=== PATIENT | male | born 1965 | race Caucasian/White ===

== ENCOUNTER 2025-01-04 20:35 | Emergency (ER) | payer OTHER, SELFPAY ==
--- NOTE | ~2025-01-04 | XR_ITS ---
CLINICAL HISTORY: injury 3 view left shoulder Comparison: None Findings: There is anterior inferior dislocation with comminuted fracture involving the greater tubercle. Impression: Anterior inferior left glenohumeral dislocation with comminuted fracture involving the greater tuberosity This document has been electronically signed by: Bernard Gallegos MD on 01/04/2025 21:29:06
--- NOTE | ~2025-01-04 | XR_ITS ---
CLINICAL HISTORY: reduction 2 view left shoulder Comparison: CR - XR SHOULDER LT MIN 2V - 01/04/25 21:17 EST Findings: Redemonstrated comminuted fractures along the greater tuberosity of the proximal humerus. Degenerative changes of the AC and glenohumeral joints. Interval relocation of the glenohumeral joint. No erosions. No radiopaque foreign body. Lateral soft tissue swelling. IMPRESSION: 1. Interval relocation of the glenohumeral joint. 2. Redemonstrated proximal humeral fracture. This document has been electronically signed by: Devyn Gardner MD on 01/04/2025 23:50:00
[2025-01-04 21:04] VITALS: BP 162/99; PULSE 105; RESP 18; TEMP 37.2; O2SAT 93; BMI 30.4
[2025-01-04 21:52] VITALS: PULSE 101; RESP 18; TEMP 36.6; O2SAT 98
[2025-01-04] MEDS: Morphine Sulfate 4 MG/ML CARTRIDGE IM (22:18)
[2025-01-04] MEDS: Ondansetron ODT 4 MG TAB.RAPDIS TRANSLINGU (22:18)
--- NOTE | 2025-01-04 22:32 | ED_ITS ---
HPI - General Adult General Chief complaint: Fall Stated complaint: left shoulder inj Time Seen by Provider: 01/04/25 21:55 Source: patient, RN notes reviewed and old records reviewed Mode of arrival: ambulatory Limitations: no limitations History of Present Illness ED Provider: Sanju FLOWERS narrative: 59-year-old male who denies any past medical history presents for evaluation of left shoulder pain. Patient reports he was skiing about an hour and a half prior to arrival. He fell onto his left side injuring his left shoulder. He is unable to move his left upper arm at the shoulder. He denies any head strike, neck pain, chest pain No other complaints or concerns at this time Related Data Previous Rx's ?Medication ?Instructions ?Recorded cyclobenzaprine 10 mg tablet 10 mg PO TID PRN muscle spasm #20 01/04/25 tabs oxycodone 5 mg tablet 5 mg PO Q6H PRN severe pain (scale 01/04/25 score 7-10) #20 tabs Allergies Allergy/AdvReac Type Severity Reaction Status Date / Time No Known Allergies Allergy Verified 01/04/25 21:07 Review of Systems Constitutional: Constitutional: Denies body ache(s), Denies chills and Denies headache(s) Eyes: Eyes: Denies blurry vision ENT: Denies headache(s) and Denies neck pain Cardiovascular: Cardiovascular: Denies chest pain and Denies dyspnea Respiratory: Respiratory: Denies dyspnea Musculoskeletal: Musculoskeletal: Reports arthralgias, Reports joint swelling, Reports limited range of motion and Denies neck pain Integumentary/Breasts: Skin/Breast: Denies wounds Neurologic: Denies headache(s) PMFSH Social History Social History Smoked in Last 30 Days: No Advance Directives: No Advance Directives Information Provided: No Do you have a plan to hurt others: No Plan Physical Exam ED Vital Signs: Vital Signs - 24 hr 01/04/25 21:04 01/04/25 21:52 Temperature 99 F 98 F Pulse Rate 105 H 101 H Respiratory Rate 18 18 Blood Pressure 162/99 H Pulse Oximetry 93 98 Oxygen Delivery Method Room Air Room Air BMI result Body Mass Index 30.4 Const General: healthy appearing, comfortable, no acute distress, alert and awake Nutritional Appearance: well nourished Orientation/consciousness: patient oriented x3 HENMT Head: Yes normocephalic and Yes atraumatic Eyes Eyelids: Yes eyelids normal Conjunctivae: conjunctivae normal Sclerae: sclerae normal Corneas: corneas normal Pupils: Equal, round and reactive pupils present EOM: EOMs intact bilaterally Neck Other: No C-spine tenderness Neck: Yes full ROM Resp Effort & Inspection: normal respiratory effort, able to speak in complete sentences and not labored Skin General skin exam: elasticity normal Neuro General: patient oriented x3 Cranial nerves: Yes Equal, round and reactive pupils present and Yes Bilaterally intact EOM present Cognition (Neuro): normal cognition Extrem Other: No tenderness to the left elbow or wrist. No significant edema to this area. Patient is able to move all 5 fingers of the left hand. Radial pulse 2 +in the left. The patient has significant tenderness to palpation of the left shoulder. Reduced range of motion to this joint. Course Reevaluation(s) Reevaluation #1: Postreduction x-ray confirms successful reduction of the humeral head and improvement of the greater tuberosity fracture. Time: 23:49 Medications Administered Discontinued Medications Generic Name Dose Route Start Last Admin Trade Name Hamzahq PRN Reason Stop Dose Admin Morphine Sulfate 4 mg 01/04/25 22:04 01/04/25 22:18 Morphine Sulfate 4 Mg/Ml Cartridge IM 01/04/25 22:05 4 mg ONCE ONE Administration Protocol Ondansetron HCl 4 mg 01/04/25 22:04 01/04/25 22:18 Ondansetron Odt 4 Mg Tab.Rapdis TRANSLINGU 01/04/25 22:05 4 mg ONCE ONE Administration Procedures Orthopedic Joint Reduction Joint #1: Time Out Performed: Yes Side: left Joint Reduction Location: shoulder Analgesia: none Shoulder Technique Used (if applicable): external rotation Post-reduction neuro exam: intact Post-reduction vascular: intact Post Reduction X-Ray Obtained: Yes Post Reduction X-Ray Results: reduced Splint Applied: Yes (sling) Patient Tolerated Procedure: well and no complications Medical Decision Making Medical Decision Making MDM Narrative: 59-year-old male presents for evaluation of left shoulder pain after a fall. X- ray shows an anterior inferior left glenohumeral dislocation with a comminuted fracture involving the greater tuberosity Differential Diagnosis Differential Diagnoses: The differential diagnosis associated with the presentation includes Independent Interpretation I performed an independent interpretation of an: Plain X-Ray Interpretation: Agree with Radiology interpretation Radiology Impression Discussion of test interpretation with radiology: I have reviewed the radiologist's reading. Radiologist Impression: Findings: There is anterior inferior dislocation with comminuted fracture involving the greater tubercle. Impression: Anterior inferior left glenohumeral dislocation with comminuted fracture involving the greater tuberosity Discharge Plan Discharge Clinical Impression: Anterior dislocation of left shoulder, Fracture, humerus, greater tuberosity Patient Disposition: Home, Self-Care Instructions: Arm Fracture in Adults (ED), Shoulder Dislocation (ED) Additional Instructions: Your shoulder was both fractured and dislocated. It was reduced in the ER You may use ibuprofen/Tylenol for pain You may use oxycodone for severe breakthrough pain Take cyclobenzaprine as needed for muscle spasms. Oxycodone and cyclobenzaprine will both make you drowsy, do not drink alcohol or drive after taking the It is important that you follow up with Orthopedics Prescriptions: New oxycodone 5 mg tablet 5 mg PO Q6H PRN (Reason: severe pain (scale score 7-10)) Qty: 20 0RF Rx Instructions: Partial Fill upon patient request. cyclobenzaprine 10 mg tablet 10 mg PO TID PRN (Reason: muscle spasm) Qty: 20 0RF Print Language: Belgian
[2025-01-05 00:08] VITALS: BP 144/86; PULSE 86; RESP 18; TEMP 37; O2SAT 98
[2025-01-05] MEDS: oxyCODONE HCl Immed Release 5 MG TABLET PO (00:15)
== END 2025-01-05 00:33 | disposition home or self-care (01) ==
PROVIDERS: Emergency Provider Emergency Medicine; PCP Family Medicine
DX: S43.085A Other dislocation of left shoulder joint, initial encounter (principal); S42.252A Displaced fracture of greater tuberosity of left humerus, initial encounter for closed fracture; V00.321A Fall from snow-skis, initial encounter; M25.512 Pain in left shoulder; Y93.23 Activity, snow (alpine) (downhill) skiing, snowboarding, sledding, tobogganing and snow tubing; Y92.828 Other wilderness area as the place of occurrence of the external cause; Y99.9 Unspecified external cause status
CPT/HCPCS: 23665; 73030; 96372; 99284; J2270

== ENCOUNTER → 2025-01-04 20:57 | Outpatient (BNV) | payer OTHER, SELFPAY | PROVIDERS: PCP Family Medicine; Visit Provider Radiology Vascular & Interventional Radiology | DX: S42.202A Unspecified fracture of upper end of left humerus, initial encounter for closed fracture (principal) | CPT/HCPCS: 73030 ==

== ENCOUNTER 2025-02-06 14:21 | Outpatient (AMB) | payer OTHER, SELFPAY ==
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
[2025-02-06 14:46] VITALS: BP 140/80; PULSE 125; RESP 14; TEMP 37.9; O2SAT 95; BMI 31.0
[2025-02-06 14:52] VITALS: BP 138/78
== END 2025-02-06 15:50 | disposition home or self-care (01) ==
LOC: HO.HMCFM 14:22
PROVIDERS: PCP Family Medicine; Visit Provider Family Medicine
DX: S42.92XA Fracture of left shoulder girdle, part unspecified, initial encounter for closed fracture (principal); E66.9 Obesity, unspecified; R00.0 Tachycardia, unspecified; Z68.31 Body mass index [BMI] 31.0-31.9, adult; I10 Essential (primary) hypertension

== ENCOUNTER → 2025-02-06 14:21 | Outpatient (BNVA) | payer OTHER, SELFPAY | PROVIDERS: PCP Family Medicine; Visit Provider Family Medicine | DX: Z76.89 Persons encountering health services in other specified circumstances (principal); I10 Essential (primary) hypertension; E66.9 Obesity, unspecified; Z68.31 Body mass index [BMI] 31.0-31.9, adult; R00.0 Tachycardia, unspecified; S42.92XD Fracture of left shoulder girdle, part unspecified, subsequent encounter for fracture with routine healing; X58.XXXD Exposure to other specified factors, subsequent encounter | CPT/HCPCS: 96127 ==

== ENCOUNTER 2025-02-14 09:51 | Outpatient (REF) | payer OTHER, SELFPAY ==
[2025-02-14 11:38] LABS: MANUAL DIFF FLAG NO
[2025-02-14 11:40] LABS: Basophils Absolute Auto 0.1 X10*3/uL (0.0-0.2); Basophils Percent Auto 0.9 % (0-2); Eosinophils Absolute Auto 0.1 X10*3/uL (0.0-0.4); Eosinophils Percent Auto 1.5 % (0-4); Hematocrit 39.9 % (42.0-52.0); Hemoglobin 13.4 g/dl (14.0-18.0); Imm Gran Abs Auto 0.02 X10*3/uL (0.00-0.03); Imm Gran Pct Auto 0.3 % (0.0-0.4); Lymphocytes Absolute Auto 2.1 X10*3/uL (1.2-4.9); Mean Corpuscular HGB Conc 33.6 g/dl (31.0-36.0); Mean Corpuscular Hemoglobin 29.7 pg (27.0-33.0); Mean Corpuscular Volume 88.5 fL (80.0-98.0); Mean Platelet Volume 9.7 fL (9.4-12.4); Monocytes Absolute Auto 0.7 X10*3/uL (0.1-1.2); Monocytes Percent Auto 10.3 % (2-11); Neutrophils Absolute Auto 3.6 x10*3/uL (2.0-8.3); Platelet Count 309 X10*3/uL (160-400); Red Blood Count 4.51 X10*6/uL (4.60-5.80); Red Cell Distribution Width 12.4 % (11.0-16.0); White Blood Count 6.5 X10*3/uL (4.8-10.8)
[2025-02-14 12:01] LABS: Estimated Average Glucose 134 mg/dL; Hemoglobin A1C 164.5138 umol/L; Hemoglobin A1c % 6.3 % (<6.0); Total Hemoglobin (HGBA1C) 3606.1451 umol/L
[2025-02-14 12:01] LABS: Appearance Urine Clear; Color Urine Yellow; Glucose Urine UA Negative (Negative); Leukocyte Esterase Urine Negative (Negative); Nitrite Urine Negative (Negative); Specific Gravity - Urine <= 1.005 (1.005-1.025); Urine Blood Negative (Negative); Urine Ketones Negative (Negative); Urine Protein Negative (Neg-Trace)
[2025-02-14 12:12] LABS: Alanine Aminotransferase 51 U/L (0-40); Albumin Level 4.3 g/dL (3.5-5.0); Alkaline Phosphatase 87 U/L (39-117); Anion Gap 9 (12-20); Aspartate Amino Transferase 35 U/L (5-37); Bilirubin Total 0.7 mg/dL (0.0-1.0); Blood Urea Nitrogen 17 mg/dL (9-16); Calcium 9.1 mg/dL (8.4-10.2); Carbon Dioxide 27 mmol/L (22-29); Chloride 104 mmol/L (96-108); Cholesterol 197 mg/dL (<200); Estimated Glomerular Filt Rate > 60; Glucose Fasting 102 mg/dL (60-99); HDL Cholesterol 43 mg/dL (>40); Iron 91 mcg/dL (45-160); LDL Cholesterol Calculated 126 mg/dL (<100); Percent Iron Saturation 32 % (15-50); Sodium 136 mmol/L (135-145); Total Iron Binding Capacity 284 mcg/dL (228-428); Total Protein 7.4 g/dL (6.5-8.0); Triglycerides 142 mg/dL (<150); Unsaturated Iron Binding 193 ug/dL
[2025-02-14 12:25] LABS: Creatinine Urine 14.92 mg/dL; Microalbumin Urine < 5.0 mg/L
[2025-02-14 12:32] LABS: TSH reflex Free T4 1.44 uIU/mL (0.32-4.0); Vitamin D 25-OH Total 56.3 ng/mL (>30)
== END 2025-02-14 09:52 | disposition home or self-care (01) ==
LOC: HO.WFDLDS 09:51
PROVIDERS: Visit Provider Family Medicine
DX: Z00.00 Encounter for general adult medical examination without abnormal findings (principal); R73.01 Impaired fasting glucose; E66.9 Obesity, unspecified; I10 Essential (primary) hypertension; R00.0 Tachycardia, unspecified; E55.9 Vitamin D deficiency, unspecified
CPT/HCPCS: 36415; 80053; 80061; 81003; 82043; 82306; 82570; 83036; 83540; 84443; 85025

== ENCOUNTER 2025-03-03 09:53 | Outpatient (AMB) | payer OTHER, SELFPAY ==
--- NOTE | 2025-03-03 10:05 | MHC.AMNUTRGE ---
VS Expanded 03/03/25 10:06 03/03/25 10:15 Height 5 ft 9 in 5 ft 9 in Weight 204 lb 12.951 oz 205 lb BMI 30.2 30.3 Intake Visit Reasons: Obesity, unspecified Allergies No Known Allergies Allergy (Verified 01/04/25 21:07) Nutrition Presentation Details: Pt presents for MNT for obesity food frequency: fruits: 0-1 fish 1-2 x/wk milk 4x/wk salads 1-2/d beverages: ice tea/milk/water etoh/smoking---- physical activity: lessened d/to injury in shoulder will start therapy on Mon BS Monitoring Most Recent Diabetes Results: Microalb/Creat Ratio TNP 02/14/25 Cholesterol 197 mg/dL (<200) 02/14/25 HDL Cholesterol 43 mg/dL (>40) 02/14/25 Triglycerides 142 mg/dL (<150) 02/14/25 Creatinine 0.82 mg/dL (0.5-1.4) 02/14/25 Blood Urea Nitrogen 17 mg/dL (9-16) H 02/14/25 Sodium 136 mmol/L (135-145) 02/14/25 Potassium 4.0 mmol/L (3.3-5.1) 02/14/25 Chloride 104 mmol/L (96-108) 02/14/25 Carbon Dioxide 27 mmol/L (22-29) 02/14/25 Calcium 9.1 mg/dL (8.4-10.2) 02/14/25 AST 35 U/L (5-37) 02/14/25 ALT 51 U/L (0-40) H 02/14/25 Total Protein 7.4 g/dL (6.5-8.0) 02/14/25 Albumin 4.3 g/dL (3.5-5.0) 02/14/25 QTZ-[id number]-Pu.Jeor Equation Height: 5 ft 9 in Weight: 205 lb Resting Metabolic Rate: 1748.87 Calculated Activity Level: Mild Activity Calories Needed to Maintain Weight: 2404.70 Diagnosis Nutrition problem #1: overweight/obesity As related to (etiology) #1: lack of nutrit education As evidenced by (sign/symptom) #1: knowledge deficit of diet [facility] Medical History (Updated 02/06/25 @ 15:22 by Diogo Cullen) Shoulder fracture, left High blood pressure Family History (Updated 02/06/25 @ 14:46 by Johny Julian [facility]) Mother Diabetes Father Asthma High blood pressure High cholesterol Diabetes Cardiovascular disease Clotting disorder Thyroid disorder Cancer Alcoholism Psychiatric disorder Maternal Grandmother Diabetes Paternal Grandmother High blood pressure High cholesterol Cardiovascular disease Clotting disorder Thyroid disorder Cancer Alcoholism Psychiatric disorder Diabetes Paternal Grandfather Diabetes High blood pressure High cholesterol Cardiovascular disease Clotting disorder Thyroid disorder Cancer Alcoholism Psychiatric disorder Assessment & Plan Assessment & Plan (1) Obesity: Code(s): E66.9 - Obesity, unspecified Category: Medical Plan: Wt: 93Kg ( 02/28 ) Est kcal needs as per MSJ: 2400 (40% carb, 30% protein/fat) Est fluid needs as per 25-30 ml/d: 2800 Est prot per day as per 1 g/kg bw: 90 Recommend fiber intake : 8-10 g per day and gradually increase to 25-28 g per day for women and 35-38 g for men or as tolerated Recommend sodium intake per day : less than 2000 mg Educated patient on: ( R = reviewed V = verbalizes understanding N/R = needs review N/A = not applicable Food sources of carbohydrate, adequate serving sizes and its role in various health conditions: R V N/R Differences between complex carbohydrates a simple carbohydrates, role of fiber in diet: R Lean protein sources of foods: R V NR Differences between types of fats and role in diet (mono on saturated fat fatty acids, saturated fatty acids, trans fats): R basic Food sources of sodium in salt and healthy modifications for heart health in kidney health: R V R/V Vitamins and minerals: R V N/R Healthy plate method concept: R V N/R Physical activity: Benefits a precaution: R Patient Instructions: Work on mindful eating Watch portion of total carb , reduce portion to 80 g carb per meal or less following healthy plate method Choose water, herb/fruit infused water , keeping hydrated Coding Level of Care Code Nutr Indiv Intake (30247) Diagnoses Obesity E66.9 Time Spent (min) 30
[2025-03-03 10:06] VITALS: BMI 30.2
[2025-03-03 14:26] VITALS: BMI 30.3
== END 2025-03-03 10:46 | disposition home or self-care (01) ==
LOC: HO.ENCR 09:54
PROVIDERS: PCP Family Medicine; Visit Provider Dietitian, Registered
DX: E66.9 Obesity, unspecified (principal)

== ENCOUNTER → 2025-03-03 09:53 | Outpatient (BNVA) | payer OTHER, SELFPAY | PROVIDERS: PCP Family Medicine; Visit Provider Dietitian, Registered | DX: E66.9 Obesity, unspecified (principal); Z68.30 Body mass index [BMI] 30.0-30.9, adult; Z71.3 Dietary counseling and surveillance | CPT/HCPCS: 97802 ==

== ENCOUNTER 2025-03-10 15:19 | Outpatient (AMB) | payer OTHER, SELFPAY ==
[2025-03-10 15:45] VITALS: BP 147/90; PULSE 87; RESP 18; TEMP 36.7; O2SAT 97; BMI 30.8
--- NOTE | 2025-03-10 15:45 | A.OFFPC_ITS ---
Vital Signs 03/10/25 15:45 03/10/25 15:46 Height 5 ft 9 in Weight 208 lb 6 oz BMI 30.8 BP 147/90 H 145/87 H Blood Pressure Location Rt brachial Lt brachial Position Sitting Sitting Respiration 18 Pulse 87 Pulse Source Pulse Oximeter Temp 98.0 F Temp Source Oral Pulse Oximetry (%) 97 Oxygen Delivery Method Room Air Intake Visit Reasons: f/u HTN Intake Note: patient scheduled for htn Radio Officer Required: No Allergies No Known Allergies Allergy (Verified 03/10/25 15:47) Medication List - Last Reconciled 03/10/25 by Raymundo Lainez MD losartan 50 mg PO DAILY 90 days HPI f/u HTN HPI Details 59 y/o male presents to f/u HTN, tachyca rdia. Also following up on labs, health maintenance. Labs drawn 02/14/25. Reviewed labs with pt. Mild anemia. A1c 6.3% - pre-diabetes range. Fasting glucose 102. ALT 51. Triglycerides 142. TC 197. LDL 126. HDL 43. Pt notes tachycardia has resolved. He had been in some pain last office visit due to a broken arm. [facility] Medical History (Updated 03/10/25 @ 16:17 by Diogo Cullen) Shoulder fracture, left High blood pressure Family History (Updated 02/06/25 @ 14:46 by Johny Julian [facility]) Mother Diabetes Father Asthma High blood pressure High cholesterol Diabetes Cardiovascular disease Clotting disorder Thyroid disorder Cancer Alcoholism Psychiatric disorder Maternal Grandmother Diabetes Paternal Grandmother High blood pressure High cholesterol Cardiovascular disease Clotting disorder Thyroid disorder Cancer Alcoholism Psychiatric disorder Diabetes Paternal Grandfather Diabetes High blood pressure High cholesterol Cardiovascular disease Clotting disorder Thyroid disorder Cancer Alcoholism Psychiatric disorder Questionnaire Thrive Questionnaire Date Thrive assessed: 02/06/25 I am a: Patient What is your living situation today?: I have a steady place to live Within the past 12 months, did the food you bought not last and you didn't have the money to get more?: Never true Within the past 12 months, did you worry whether your food would run out before you got money to buy more?: Never true Do you have trouble paying for medicines?: No Do you have trouble getting transportation to medical appointments?: No Do you have trouble paying your heating and electricity bill?: No Do you have trouble taking care of your child, family member or friend?: No Do you have trouble with day-to-day activities such as bathing, preparing meals, shopping, managing finances, etc.?: No Are you currently unemployed and looking for a job?: No Are you interested in more education?: No Please select the resources that you would like help with: None Currently or been in a relationship where the following occur: No concerns reported THRIVE Score: 0 KNENETH-7 AMB Questionnaire KENNETH-7 Date KENNETH - 7 assessed: 02/06/25 Source: Developed by Drs. Rene Alexander, Katrin Mane, Jose Elizondo and colleagues, with an educational jose manuel from [employer]. Review of Systems Const Denies chills, Denies fatigue, Denies fever(s), Denies headache(s) and Denies weakness ENT Denies dizziness and Denies headache(s) Card Denies dyspnea Resp Denies cough, Denies dyspnea, Denies wheezing and Denies other (shortness of breath) Musc Denies numbness and Denies tingling Neuro Denies dizziness, Denies headache(s), Denies numbness, Denies tingling and Denies weakness Psych Denies anxiety and Denies depression Endo Denies fatigue Aller/Immun Denies wheezing Physical exam (Primary Care) Vital Signs: Last Vital Signs Temp 98.0 F 03/10/25 15:45 Pulse 87 03/10/25 15:45 Resp 18 03/10/25 15:45 BP 145/87 H 03/10/25 15:46 Pulse Ox 97 03/10/25 15:45 Oxygen Delivery Method Room Air 03/10/25 15:45 BMI result Body Mass Index 30.8 Thrive Assessment: Date of Thrive Assessment Date Thrive assessed 02/06/25 03/10/25 15:47 Currently or been in a relationship where the following occur: No concerns reported Const General: well developed; No acute distress Nutritional Appearance: well nourished Orientation/consciousness: patient oriented x3 HENMT Head: Yes normocephalic and Yes atraumatic Eyes General: appearance normal, both eyes and all related structures Pupils: Equal, round and reactive pupils present EOM: EOMs intact bilaterally Resp Effort & Inspection: normal respiratory effort Auscultation: clear to auscultation bilaterally Cardio Rate: regular rate Rhythm: regular rhythm Heart sounds: S1 normal heart sound present, S2 normal heart sound present, no gallops, no murmurs and no rubs Neuro General: patient oriented x3 and gait normal Cranial nerves: Yes Equal, round and reactive pupils present Psych Affect: normal affect Coding Level of Care Code Est Pt Level 4 (42078) Diagnoses High blood pressure I10 Tachycardia R00.0 Pre-diabetes R73.03 Elevated LDL cholesterol level E78.00 Screening for colon cancer Z12.11 Screening for prostate cancer Z12.5 Mild anemia D64.9 Viral wart on finger B07.9 Assessment & Plan Assessment & Plan (1) High blood pressure: Code(s): I10 - Essential (primary) hypertension Category: Medical Plan: Blood?pressure?is?still?high. Had?sent?a?script?for?losartan?at?his?last?visit?but?he?has?not?started?this?yet . Reassured?patient?and?encouraged?him?to?start?the?medication We?can?follow-up?on?this?at?his?next?visit (2) Tachycardia: Code(s): R00.0 - Tachycardia, unspecified Category: Medical Plan: This?has?resolved. Patient?was?in?some?pain?at?his?last?visit?due?to a?broken?arm. (3) Pre-diabetes: Code(s): R73.03 - Prediabetes Category: Medical Plan: A1c?6.3%.??Pre?diabetes Encouraged?a?diet?low?in?sugars?and?starches.??Encouraged?weight?loss Will?follow-up?on?this?at?his?visit?in?June. (4) Elevated LDL cholesterol level: Code(s): E78.00 - Pure hypercholesterolemia, unspecified Category: Medical Plan: LDL?cholesterol?is?too?high Encouraged?a?diet?lower?in?saturated?fats?and?cholesterol Encouraged?weight?loss Will?follow-up?on?this?at?his?visit?in?June (5) Screening for colon cancer: Code(s): Z12.11 - Encounter for screening for malignant neoplasm of colon Category: Medical Plan: Patient?has?never?had?a?colonoscopy Referred?to?Gastroenterology (6) Screening for prostate cancer: Code(s): Z12.5 - Encounter for screening for malignant neoplasm of prostate Category: Medical Plan: Check?PSA?with?next?blood?draw (7) Mild anemia: Code(s): D64.9 - Anemia, unspecified Category: Medical Plan: Likely?secondary?to?fracture?which?is?healed Will?recheck?CBC?with?next?blood?draw (8) Viral wart on finger: Code(s): B07.9 - Viral wart, unspecified Category: Medical Plan: He?can?try?a?compound?W?freeze?spray If?not?working?at?home,?he?can?make?an?appointment?for?cryo?freeze?therapy?at?th e?office. Orders: Orders Prostate Specific Antigen Scr Today Z12.5 - Encounter for screening for malignant neoplasm of prostate Comprehensive Thayer. Panel Fast Today R73.03 - Prediabetes, Z00.00 - Encounter for general adult medical examination without abnormal findings Complete Blood Count Auto Diff Today D64.9 - Anemia, unspecified, Z00.00 - Encounter for general adult medical examination without abnormal findings IRON PROFILE Today D64.9 - Anemia, unspecified Vitamin B12 and Folate Today D64.9 - Anemia, unspecified, E53.8 - Deficiency of other specified B group vitamins Reticulocyte Count Today D64.9 - Anemia, unspecified Lipid Panel Today E78.00 - Pure hypercholesterolemia, unspecified, Z00.00 - Encounter for general adult medical examination without abnormal findings Hemoglobin A1c Today R73.01 - Impaired fasting glucose, R73.03 - Prediabetes Prostate Specific Antigen Scr 1 Month Z12.5 - Encounter for screening for malignant neoplasm of prostate Referrals Gastroenterology Referral Z12.11 - Encounter for screening for malignant neoplasm of colon Medications: Discontinued cyclobenzaprine Discontinued Reason: Change Referral Type 10 mg PO TID PRN 20 tabs 0RF muscle spasm oxycodone Partial Fill upon patient request. Discontinued Reason: Doctor's Order 5 mg PO Q6H PRN 20 tabs 0RF severe pain (scale score 7-10)
[2025-03-10 15:46] VITALS: BP 145/87
== END 2025-03-10 17:05 | disposition home or self-care (01) ==
LOC: HO.HMCFM 15:20
PROVIDERS: PCP Family Medicine; Visit Provider Family Medicine
DX: I10 Essential (primary) hypertension (principal); R00.0 Tachycardia, unspecified; R73.03 Prediabetes; E78.00 Pure hypercholesterolemia, unspecified; Z12.11 Encounter for screening for malignant neoplasm of colon; Z12.5 Encounter for screening for malignant neoplasm of prostate; D64.9 Anemia, unspecified; B07.9 Viral wart, unspecified

== ENCOUNTER → 2025-03-10 15:19 | Outpatient (BNVA) | payer OTHER, SELFPAY | PROVIDERS: PCP Family Medicine; Visit Provider Family Medicine | DX: Z13.89 Encounter for screening for other disorder (principal) ==

== ENCOUNTER 2025-04-22 12:49 | Outpatient (AMB) | payer OTHER, SELFPAY ==
[2025-04-22 13:12] VITALS: BMI 29.1
--- NOTE | 2025-04-22 13:12 | A.OFFVIS_ITS ---
VS Expanded 04/22/25 13:12 Height 5 ft 9 in Weight 196 lb 13.965 oz BMI 29.1 Intake Visit Reasons: obesity Allergies No Known Allergies Allergy (Verified 03/10/25 15:47) Nutrition Presentation Details: Pt presents for MNT for pre DM Pt reports working on diet modifications, reducing sugars, choosing lower fat protein foods and including fiber rich foods Reports working on fasting in the past week Pt reports taking vitamin K, vit D and turmeric - self prescribed - Pt was advised on caution with fat soluble vitamin and toxicity physical activity: physical therapy twice wk (1 hr), working towards reaching 1000 steps BS Monitoring Most Recent Diabetes Results: Microalb/Creat Ratio TNP 02/14/25 Cholesterol, (<200) 197 mg/dL 02/14/25 HDL Cholesterol, (>40) 43 mg/dL 02/14/25 Triglycerides, (<150) 142 mg/dL 02/14/25 Creatinine, (0.5-1.4) 0.82 mg/dL 02/14/25 BUN, (9-16) 17 mg/dL H 02/14/25 Sodium, (135-145) 136 mmol/L 02/14/25 Potassium, (3.3-5.1) 4.0 mmol/L 02/14/25 Chloride, (96-108) 104 mmol/L 02/14/25 Carbon Dioxide, (22-29) 27 mmol/L 02/14/25 Calcium, (8.4-10.2) 9.1 mg/dL 02/14/25 AST, (5-37) 35 U/L 02/14/25 ALT, (0-40) 51 U/L H 02/14/25 Total Protein, (6.5-8.0) 7.4 g/dL 02/14/25 Albumin, (3.5-5.0) 4.3 g/dL 02/14/25 [facility] Medical History (Updated 03/10/25 @ 16:17 by Diogo Cullen) Shoulder fracture, left High blood pressure Family History (Updated 02/06/25 @ 14:46 by [facility] Mother Diabetes Father Asthma High blood pressure High cholesterol Diabetes Cardiovascular disease Clotting disorder Thyroid disorder Cancer Alcoholism Psychiatric disorder Maternal Grandmother Diabetes Paternal Grandmother High blood pressure High cholesterol Cardiovascular disease Clotting disorder Thyroid disorder Cancer Alcoholism Psychiatric disorder Diabetes Paternal Grandfather Diabetes High blood pressure High cholesterol Cardiovascular disease Clotting disorder Thyroid disorder Cancer Alcoholism Psychiatric disorder Assessment & Plan Assessment & Plan (1) Obesity: Code(s): E66.9 - Obesity, unspecified Category: Medical Plan: Wt: 93Kg ( 02/28 ), 89. 5 ((04/30), Est kcal needs as per MSJ: 2400 (40% carb, 30% protein/fat) Est fluid needs as per 25-30 ml/d: 2700 Est prot per day as per 1 g/kg bw: 90 Recommend fiber intake : 8-10 g per day and gradually increase to 25-28 g per day for women and 35-38 g for men or as tolerated Recommend sodium intake per day : less than 2000 mg Educated patient on: ( R = reviewed V = verbalizes understanding N/R = needs review N/A = not applicable * Food sources of carbohydrate, adequate serving sizes and its role in various health conditions: R V N/R * Differences between complex carbohydrates a simple carbohydrates, role of fiber in diet: R * Lean protein sources of foods: R * Differences between types of fats and role in diet (mono on saturated fat fatty acids, saturated fatty acids, trans fats): R basic * Food sources of sodium in salt and healthy modifications for heart health in kidney health: R * Vitamins and minerals: R V N/R * Healthy plate method concept: R * Physical activity: Benefits a precaution: R * Patient Instructions: Include calcium rich foods (almond milk, legumes, greens - see list of food options ) 1200mg/day Continue working on reducing total carb at meal to less thn 80 g choosing fiber rich foods Coding Level of Care Code Nutr Indiv Subseq (15520) Diagnoses Obesity E66.9 Time Spent (min) 30
== END 2025-04-22 13:53 | disposition home or self-care (01) ==
LOC: HO.ENCR 12:50
PROVIDERS: PCP Family Medicine; Visit Provider Dietitian, Registered
DX: E66.9 Obesity, unspecified (principal)

== ENCOUNTER → 2025-04-22 12:49 | Outpatient (BNVA) | payer OTHER, SELFPAY | PROVIDERS: PCP Family Medicine; Visit Provider Dietitian, Registered | DX: Z71.3 Dietary counseling and surveillance (principal); E66.9 Obesity, unspecified; R73.03 Prediabetes | CPT/HCPCS: 97803 ==

== ENCOUNTER → 2025-06-10 13:25 | Outpatient (AMB) | payer OTHER, SELFPAY ==
[2025-06-10 13:33] VITALS: BMI 29.1
--- NOTE | 2025-06-10 13:33 | MHC.AMNUTRGE ---
VS Expanded 06/10/25 13:33 Height 5 ft 9 in Weight 197 lb 1.492 oz BMI 29.1 Intake Visit Reasons: predm Allergies No Known Allergies Allergy (Verified 03/10/25 15:47) Nutrition Presentation Details: Pt presents for MNT for pre DM Pt reports taking a b complex working on meal planning, limiting intake of empty calorie foods, having challenges during the weekend physical activity: working towards 97111 steps/day fluids :water, low sugar beverages >40 oz/d BS Monitoring Most Recent Diabetes Results: Microalb/Creat Ratio TNP 02/14/25 Cholesterol, (<200) 197 mg/dL 02/14/25 HDL Cholesterol, (>40) 43 mg/dL 02/14/25 Triglycerides, (<150) 142 mg/dL 02/14/25 Creatinine, (0.5-1.4) 0.82 mg/dL 02/14/25 BUN, (9-16) 17 mg/dL H 02/14/25 Sodium, (135-145) 136 mmol/L 02/14/25 Potassium, (3.3-5.1) 4.0 mmol/L 02/14/25 Chloride, (96-108) 104 mmol/L 02/14/25 Carbon Dioxide, (22-29) 27 mmol/L 02/14/25 Calcium, (8.4-10.2) 9.1 mg/dL 02/14/25 AST, (5-37) 35 U/L 02/14/25 ALT, (0-40) 51 U/L H 02/14/25 Total Protein, (6.5-8.0) 7.4 g/dL 02/14/25 Albumin, (3.5-5.0) 4.3 g/dL 02/14/25 [facility] Medical History (Updated 03/10/25 @ 16:17 by Diogo Cullen) Shoulder fracture, left High blood pressure Family History (Updated 02/06/25 @ 14:46 by Johny Julian [facility]) Mother Diabetes Father Asthma High blood pressure High cholesterol Diabetes Cardiovascular disease Clotting disorder Thyroid disorder Cancer Alcoholism Psychiatric disorder Maternal Grandmother Diabetes Paternal Grandmother High blood pressure High cholesterol Cardiovascular disease Clotting disorder Thyroid disorder Cancer Alcoholism Psychiatric disorder Diabetes Paternal Grandfather Diabetes High blood pressure High cholesterol Cardiovascular disease Clotting disorder Thyroid disorder Cancer Alcoholism Psychiatric disorder Assessment & Plan Assessment & Plan (1) Obesity: Code(s): E66.9 - Obesity, unspecified Category: Medical Plan: Wt: 93Kg ( 02/28 ), 89. 5 ((04/30), 06/30 Est kcal needs as per MSJ: 2400 (40% carb, 30% protein/fat) Est fluid needs as per 25-30 ml/d: 2700 Est prot per day as per 1 g/kg bw: 90 Recommend fiber intake : 8-10 g per day and gradually increase to 25-28 g per day for women and 35-38 g for men or as tolerated Recommend sodium intake per day : less than 2000 mg Educated patient on: ( R = reviewed V = verbalizes understanding N/R = needs review N/A = not applicable Food sources of carbohydrate, adequate serving sizes and its role in various health conditions: R V N/R Differences between complex carbohydrates a simple carbohydrates, role of fiber in diet: R Lean protein sources of foods: R Differences between types of fats and role in diet (mono on saturated fat fatty acids, saturated fatty acids, trans fats): R basic Food sources of sodium in salt and healthy modifications for heart health in kidney health: R Vitamins and minerals: R Healthy plate method concept: R Physical activity: Benefits a precaution: R Patient Instructions: Continue following healthy plate method Reduce on hidden fats HAve one meal replacements as a weekend meal Coding Level of Care Code Nutr Indiv Subseq (89816) Diagnoses Obesity E66.9 Time Spent (min) 30
== END ==
LOC: HO.ENCR 13:26
PROVIDERS: PCP Family Medicine; Visit Provider Dietitian, Registered
DX: E66.9 Obesity, unspecified (principal)

== ENCOUNTER → 2025-06-10 13:25 | Outpatient (BNVA) | payer OTHER, SELFPAY | PROVIDERS: PCP Family Medicine; Visit Provider Dietitian, Registered | DX: R73.03 Prediabetes (principal); E66.9 Obesity, unspecified | CPT/HCPCS: 97803 ==

== ENCOUNTER 2025-06-14 13:03 | Outpatient (REF) | payer OTHER, SELFPAY ==
[2025-06-14 14:04] LABS: MANUAL DIFF FLAG NO
[2025-06-14 14:07] LABS: Hematocrit 41.1 % (42.0-52.0); Hemoglobin 13.9 g/dl (14.0-18.0); Imm Gran Abs Auto 0.02 X10*3/uL (0.00-0.03); Imm Gran Pct Auto 0.3 % (0.0-0.4); Lymphocytes Absolute Auto 2.8 X10*3/uL (1.2-4.9); Mean Corpuscular HGB Conc 33.8 g/dl (31.0-36.0); Mean Corpuscular Hemoglobin 29.8 pg (27.0-33.0); Mean Corpuscular Volume 88.0 fL (80.0-98.0); NRBC Abs Auto 0.000 X10*3/uL (0.0-0.012); NRBC Pct Auto 0.0 /100WBC (0.0-0.2); Platelet Count 312 X10*3/uL (160-400); Red Blood Count 4.67 X10*6/uL (4.60-5.80); Reticulocytes Absolute 0.050 X10*6/uL (0.026-0.095); White Blood Count 7.8 X10*3/uL (4.8-10.8)
[2025-06-14 14:23] LABS: Hemoglobin A1C 166.4975 umol/L; Total Hemoglobin (HGBA1C) 3711.9801 umol/L
[2025-06-14 14:25] LABS: Alanine Aminotransferase 30 U/L (0-40); Albumin Level 4.7 g/dL (3.5-5.0); Alkaline Phosphatase 85 U/L (39-117); Anion Gap 11 (12-20); Aspartate Amino Transferase 33 U/L (5-37); Blood Urea Nitrogen 18 mg/dL (9-16); Calcium 9.2 mg/dL (8.4-10.2); Carbon Dioxide 25 mmol/L (22-29); Chloride 107 mmol/L (96-108); Cholesterol 220 mg/dL (<200); Estimated Glomerular Filt Rate > 60; HDL Cholesterol 46 mg/dL (>40); Iron 77 mcg/dL (45-160); Percent Iron Saturation 26 % (15-50); Potassium 4.4 mmol/L (3.3-5.1); Sodium 139 mmol/L (135-145); Total Iron Binding Capacity 296 mcg/dL (228-428); Total Protein 7.7 g/dL (6.5-8.0); Triglycerides 137 mg/dL (<150); Unsaturated Iron Binding 219 ug/dL
[2025-06-14 14:59] LABS: Folate 14.2 ng/mL (> or = 4.0); Vitamin B12 420 pg/mL (200-900)
== END 2025-06-14 13:04 | disposition home or self-care (01) ==
LOC: HO.HMGCLDS 13:03
PROVIDERS: PCP Family Medicine; Visit Provider Family Medicine
DX: Z00.00 Encounter for general adult medical examination without abnormal findings (principal); Z12.5 Encounter for screening for malignant neoplasm of prostate; D64.9 Anemia, unspecified; E78.00 Pure hypercholesterolemia, unspecified; R73.03 Prediabetes; E53.8 Deficiency of other specified B group vitamins; R73.01 Impaired fasting glucose
CPT/HCPCS: 36415; 80053; 80061; 82607; 82746; 83036; 83540; 84153; 85025; 85045

== ENCOUNTER 2025-06-18 13:43 | Outpatient (AMB) | payer OTHER, SELFPAY ==
--- NOTE | 2025-06-18 14:11 | MHC.PC.OV ---
Vital Signs 06/18/25 14:16 Height 5 ft 9 in Weight 198 lb 8 oz BMI 29.3 BP 136/74 Blood Pressure Location Rt brachial Position Sitting Respiration 18 Pulse 82 Pulse Source Pulse Oximeter Temp 97.5 F Temp Source Temporal Artery Scan Pulse Oximetry (%) 95 Oxygen Delivery Method Room Air Intake Visit Reasons: Physical Intake Note: Jesus presents in the office today for his annual physical. Allergies No Known Allergies Allergy (Verified 06/18/25 14:13) Medication List - Last Reconciled 06/18/25 by Raymundo Lainez MD losartan 50 mg PO DAILY 90 days Tobacco use date assessed: 06/18/25 Dental Screening Dental Screen Date: 06/18/25 Did you have a dental visit in the last 12 months?: Yes Did you have a dental problem in the last 6 months where you did not have access to dental care?: No Was dental information given to patient?: Patient has dentist HPI Physical HPI Details Patient presents for CPE with follow-up labs and health maintenance. Taking losartan without any problems and blood pressure 136/74 today. A1c 6.3% again today. Unchanged from previous Reviewed CBC. Still has mild anemia though slightly improved. Reviewed PSA level with patient. 1.31. Had mildly elevated ALT at last check. Now within normal range LDL cholesterol was high at last measurement. Higher at most recent check. He is working on diet and exercise No new complaints. Patient feels well. [facility] Medical History (Updated 06/18/25 @ 14:49 by Raymundo Lainez MD) Shoulder fracture, left High blood pressure Family History Mother Diabetes Father Asthma High blood pressure High cholesterol Diabetes Cardiovascular disease Clotting disorder Thyroid disorder Cancer Alcoholism Psychiatric disorder Maternal Grandmother Diabetes Paternal Grandmother High blood pressure High cholesterol Cardiovascular disease Clotting disorder Thyroid disorder Cancer Alcoholism Psychiatric disorder Diabetes Paternal Grandfather Diabetes High blood pressure High cholesterol Cardiovascular disease Clotting disorder Thyroid disorder Cancer Alcoholism Psychiatric disorder Social History (Updated 06/18/25 @ 14:15 by Stacey Salter MA) Housing: House Alcohol intake: current Patient Tobacco Use Status: Never used Tobacco e-Cigarette/Vaping Use: Never Used Second Hand Smoke Exposure: No service: No Current occupational status: employed Current occupation: [employer] Current occupational exposures/hazards: No Cognitive needs: No Hearing needs: No Vision needs: No Questionnaire PHQ-9 Over the last 2 weeks, how often have you been bothered by any of the following problems? 1. Little interest or pleasure in doing things: several days 2. Feeling down, depressed, or hopeless: not at all 3. Trouble falling or staying asleep, or sleeping too much: not at all 4. Feeling tired or having little energy: several days 5. Poor appetite or overeating: not at all 6. Feeling bad about yourself - or that you are a failure or have let yourself or your family down: not at all 7. Trouble concentrating on things, such as reading the newspaper or watching television: not at all 8. Moving or speaking so slowly that other people could have noticed. Or the opposite - being so fidgety or restless that you have been moving around a lot more than usual: not at all 9. Thoughts that you would be better off or of hurting yourself in some way: not at all Total score: 2 Depression Screening Interpretation: Negative Depression Screening Done: Yes 08430 - PHQ-9 Billing: Yes Source: Developed by Drs. Rene Alexander, Katrin Mane, Jose Elizondo and colleagues, with an educational jose manuel from [employer]. Thrive Questionnaire Date Thrive assessed: 06/18/25 I am a: Patient What is your living situation today?: I have a steady place to live Within the past 12 months, did the food you bought not last and you didn't have the money to get more?: Never true Within the past 12 months, did you worry whether your food would run out before you got money to buy more?: Never true Do you have trouble paying for medicines?: No Do you have trouble getting transportation to medical appointments?: No Do you have trouble paying your heating and electricity bill?: No Do you have trouble taking care of your child, family member or friend?: No Do you have trouble with day-to-day activities such as bathing, preparing meals, shopping, managing finances, etc.?: No Are you currently unemployed and looking for a job?: No Are you interested in more education?: No Please select the resources that you would like help with: None Currently or been in a relationship where the following occur: No concerns reported THRIVE Score: 0 AUDIT C Alcohol Use Questionnaire (AUDIT-C) 1. How often do you have a drink containing alcohol?: 2-4 times a month 2. How many drinks containing alcohol do you have on a typical day when you are drinking?: 1 or 2 3. How often do you have six or more drinks on one occasion?: Never Total Score: 2 KENNETH-7 AMB Questionnaire KENNETH-7 Date KENNETH - 7 assessed: 06/18/25 Feeling nervous, anxious, or on edge: 1 = Several days Not being able to stop or control worryin = Not at all Worrying too much about different things: 0 = Not at all Trouble relaxin = Not at all Being so restless that it is hard to sit still: 0 = Not at all Becoming easily annoyed or irritable: 0 = Not at all Feeling afraid as if something awful might happen: 0 = Not at all Total KENNETH-7 score (0-4 normal; 5-9 mild; 10-14 moderate; 15-21 severe): 1 Source: Developed by Drs. Rene Alexander, Katrin Mane, Jose Elizondo and colleagues, with an educational jose manuel from [employer]. KENNETH-7 Assessment Billing KENNETH-7 Assessment Tool: KENNETH-7 Assessment 49783 Review of Systems Const Denies chills, Denies fatigue, Denies fever(s), Denies headache(s) and Denies weakness Eyes Denies change in vision ENT Denies dizziness, Denies headache(s), Denies hearing loss, Denies nasal congestion, Denies sinus pain, Denies sinus pressure and Denies sore throat Card Denies chest pain, Denies lightheadedness, Denies dyspnea and Denies other (palpitations) Resp Denies cough, Denies dyspnea and Denies wheezing GI Denies abdominal pain, Denies melena, Denies hematochezia, Denies change in bowel habits, Denies dyspepsia and Denies nausea Denies hematuria and Denies dysuria Musc Denies abnormal gait, Denies myalgias, Denies arthralgias, Denies numbness and Denies tingling Skin/Breast Denies rash, Denies unusual bruising and Denies wounds Neuro Denies abnormal gait, Denies dizziness, Denies headache(s), Denies memory loss, Denies numbness, Denies Sensory deficit (Neuro), Denies tingling and Denies weakness Psych Denies anxiety, Denies depression and Denies memory loss Endo Denies cold intolerance, Denies fatigue, Denies heat intolerance, Denies polydipsia and Denies polyuria Isaias/Lymph Denies easy bleeding and Denies easy bruising Aller/Immun Denies wheezing Physical exam (Primary Care) Vital Signs: Last Vital Signs Temp 97.5 F 06/18/25 14:16 Pulse 82 06/18/25 14:16 Resp 18 06/18/25 14:16 BP 136/74 06/18/25 14:16 Pulse Ox 95 06/18/25 14:16 Oxygen Delivery Method Room Air 06/18/25 14:16 BMI result Body Mass Index 29.3 Tobacco/Smoking Status: Tobacco use Status Tobacco use date assessed 06/18/25 06/18/25 14:16 Patient Tobacco Use Status Never used Tobacco 06/18/25 14:16 e-Cigarette/Vaping Use Never Used 06/18/25 14:16 PHQ-9: PHQ-9 Score PHQ-9: Total score 2 06/18/25 14:22 Depression Screening Interpretation: Negative Thrive Assessment: Date of Thrive Assessment Date Thrive assessed 06/18/25 06/18/25 14:16 Currently or been in a relationship where the following occur: No concerns reported Const General: no acute distress, well developed, alert and awake Nutritional Appearance: well nourished Orientation/consciousness: patient oriented x3 HENMT Head: Yes normocephalic and Yes atraumatic Ears: hearing grossly normal bilaterally and TM's normal bilaterally General nose exam: Normal external nose present and Normal nares present Mouth: Normal oral and palatal mucosa present and moist mucous membranes Teeth and gingiva: dentition normal Throat: Yes posterior oropharynx normal Eyes Pupils: Equal, round and reactive pupils present and Pupil accommodation reflex normal EOM: EOMs intact bilaterally Neck Neck: Yes normal visual inspection, Yes no lymphadenopathy and Yes trachea midline Thyroid: Thyroid normal Carotids: no bruits Lymphatic: no lymphadenopathy noted Chest Chest palpation & inspection: normal inspection of the chest Resp Effort & Inspection: normal respiratory effort Auscultation: clear to auscultation bilaterally Cardio Rate: regular rate Rhythm: regular rhythm Heart sounds: S1 normal heart sound present, S2 normal heart sound present, no gallops, no murmurs and no rubs Bruits: no abdominal aortic bruits and no carotid bruits GI Palpation (GI): No Abdominal aortic bruit present, Soft to palpation, nontender, No hepatosplenomegaly present and No Rebound tenderness present Auscultation: normal bowel sounds General: Yes no CVA tenderness Back/Spine/Pelvis Back: no CVA tenderness Cervical Spine: cervical ROM normal and No Cervical spine tenderness Thoracic/Lumbar Spine: thoraco-lumbar ROM normal, No pain with thoraco-lumbar ROM, No thoracic spinal tenderness and No lumbar spinal tenderness Skin Lesions: no lesions Rashes: no rashes Trauma: no lacerations or abrasions Wounds: no wounds Nails: normal Neuro General: patient oriented x3, gait normal and CN's II-XI intact bilaterally Cranial nerves: Yes Equal, round and reactive pupils present Cognition (Neuro): normal cognition Gait exam (Neuro): Normal gait present Motor exam (neuro): 5/5 motor strength present throughout Sensory Exam: No Sensory deficit (Neuro) Deep tendon reflexes (DTR's): Right patellar reflex intensity grade: 2+ and Left patellar reflex intensity grade: 2+ Extrem General: Yes normal to inspection and No edema Psych Appearance: grossly normal Affect: normal affect Attitude: cooperative Thought process: Normal thought process present Coding Level of Care Code Est Pt Level 3 (07045) Est Pt Prev Care 40-64y(45293) Diagnoses High blood pressure I10 Hyperlipidemia E78.5 Mild anemia D64.9 Elevated ALT measurement R74.01 Screening for prostate cancer Z12.5 Screening for colon cancer Z12.11 Additional Codes KENNETH-7 Assessment Billing - KENNETH-7 Assessment Tool: KENNETH-7 Assessment 74461 ([id number]) PHQ-9 - 45351 - PHQ-9 Billing: Yes ([id number]) Assessment & Plan Assessment & Plan (1) High blood pressure: Code(s): I10 - Essential (primary) hypertension Category: Medical Plan: Blood pressure is controlled. Goal is less than 140/90 Continue current medication Encouraged diet lower in sodium in salt. Encouraged weight loss and exercise (2) Hyperlipidemia: Code(s): E78.5 - Hyperlipidemia, unspecified Category: Medical Plan: LDL cholesterol is too high Start atorvastatin Will recheck lipids at next blood draw (3) Mild anemia: Code(s): D64.9 - Anemia, unspecified Category: Medical Plan: Mildly improved Will continue monitor (4) Elevated ALT measurement: Code(s): R74.01 - Elevation of levels of liver transaminase levels Category: Medical Plan: This has resolved Will monitor periodically Continue good hydration and weight loss (5) Screening for prostate cancer: Code(s): Z12.5 - Encounter for screening for malignant neoplasm of prostate Category: Medical Plan: PSA is within normal range Will continue annual screening (6) Screening for colon cancer: Code(s): Z12.11 - Encounter for screening for malignant neoplasm of colon Category: Medical Plan: Had referred patient to Gastroenterology. According to Internal messaging they try to reach him but he says he was not contacted. Gave him the phone number gastroenterology Orders: Orders Lipid Panel Today E78.00 - Pure hypercholesterolemia, unspecified, Z00.00 - Encounter for general adult medical examination without abnormal findings Comprehensive Dierks. Panel Fast Today E78.00 - Pure hypercholesterolemia, unspecified, Z00.00 - Encounter for general adult medical examination without abnormal findings Complete Blood Count Auto Diff Today Z00.00 - Encounter for general adult medical examination without abnormal findings Medications: New atorvastatin (Lipitor) 20 mg PO DAILY 90 tabs 3RF 90 days
[2025-06-18 14:16] VITALS: BP 136/74; PULSE 82; RESP 18; TEMP 36.4; O2SAT 95; BMI 29.3
== END 2025-06-18 14:43 | disposition home or self-care (01) ==
LOC: HO.HMCFM 13:44
PROVIDERS: PCP Family Medicine; Visit Provider Family Medicine
DX: Z00.00 Encounter for general adult medical examination without abnormal findings (principal); I10 Essential (primary) hypertension; E78.5 Hyperlipidemia, unspecified; D64.9 Anemia, unspecified; R74.01 Elevation of levels of liver transaminase levels; Z12.5 Encounter for screening for malignant neoplasm of prostate; Z12.11 Encounter for screening for malignant neoplasm of colon

== ENCOUNTER → 2025-06-18 13:43 | Outpatient (BNVA) | payer OTHER, SELFPAY | PROVIDERS: PCP Family Medicine; Visit Provider Family Medicine | DX: Z00.00 Encounter for general adult medical examination without abnormal findings (principal); I10 Essential (primary) hypertension; E78.5 Hyperlipidemia, unspecified; D64.9 Anemia, unspecified; R74.01 Elevation of levels of liver transaminase levels | CPT/HCPCS: 96127 ==